=== PATIENT | male | born 1945 | race Caucasian/White ===

== ENCOUNTER → 2018-01-07 | Outpatient (CLI) | payer OTHER, MEDICARE ==
[~2018-01-07] MED LIST: ASPIR 8181 MG PO; ASPIRIN; AUGMENTIN 875875 MG PO; AZITHROMYCIN 2250 MG PO; CARBAMAZEPINE; FISH OIL 1,001000 M2 PO; FLOMAX0.4 MG PO; HYDROCODONE-AP1 EAC6 PO; IMDUR; MECLIZINE HCL12.5 MG PO; RANEXA; TESSALON PERLE100 MG PO; VENTOLIN HFA 1818 GM INH; VITAMINS
[2018-01-07 12:22] LABS: ANION GAP 8 mmol/L (7-16); BUN 10 mg/dL (7-18); CALCIUM 8.6 mg/dL (8.5-10.1); CHLORIDE 105 mmol/L (98-107); CHOLESTEROL 76 mg/dL (<200); CO2 27 mmol/L (21-32); CREATININE 0.8 mg/dL (0.6-1.3); GLUCOSE 188 mg/dL (70-99); HDL CHOLESTEROL 33 mg/dL (>40); LDL CHOLESTEROL 17 mg/dL (<100); POTASSIUM 4.2 mmol/L (3.5-5.1); SODIUM 140 mmol/L (136-145); TC:HDL 2.3 Ratio (Not establshd); TRIGLYCERIDE 134 mg/dL (<150); TROPONIN-I LEVEL <0.06 ng/mL (<0.06); VLDL 27 mg/dL (<40)
[2018-01-07 12:26] LABS: SERUM ASSESSMENT Clear
== END ==
LOC: M.LAB 11:07
PROVIDERS: Internal Medicine Cardiovascular Disease
DX: I10 Essential (primary) hypertension (principal); I25.119 Atherosclerotic heart disease of native coronary artery with unspecified angina pectoris; E78.5 Hyperlipidemia, unspecified; E55.9 Vitamin D deficiency, unspecified; R73.03 Prediabetes; R07.9 Chest pain, unspecified